=== PATIENT | male | born 1990 | race Caucasian/White ===

== ENCOUNTER 2016-07-22 15:25 | Emergency (ER) | payer SELFPAY ==
[~2016-07-22] VITALS: Ht 182.9 cm; Wt 71.4 kg
[~2016-07-22 15:25] MED LIST: MOTRIN600 MG PO; PERCOCET 7.51 TABLET PO
[2016-07-22 17:31] LABS: HEMATOCRIT 42.7 % (38.0-50.0); MCH 28.7 PG (29.0-34.0); MCHC 33.3 G/DL (30.0-36.0); MCV 86.3 FL (86-99); MEAN PLAT.VOLUME 9.9 uM^3 (9.0-12.4); PLATELET COUNT 273 K/uL (156-360); RBC DIS.WIDTH-CV 12.3 % (11.8-14.6); RBC DIS.WIDTH-SD 38.8 % (39-53); RED BLOOD COUNT 4.95 M/uL (4.00-5.50); WHITE BLOOD COUNT 7.1 K/uL (4.1-10.2)
[2016-07-22 17:45] LABS: CHLORIDE 102 mEq/L (99-109); POTASSIUM 4.3 mEq/L (3.7-5.4); SODIUM 139 mEq/L (136-147)
[2016-07-22 17:47] LABS: GLUCOSE 92 mg/dL (70-99)
[2016-07-22 17:49] LABS: ANION GAP 11 MEQ/L (2-14)
[2016-07-22 17:51] LABS: GFR ESTIMATE (CALCULATED) > 59 mL/min/
[2016-07-22 17:52] LABS: UREA NITROGEN (BUN) 17 mg/dL (9-23)
[2016-07-22 18:02] LABS: ADD MIUA? NO; BILIRUBIN NEGATIVE; BLOOD NEGATIVE; COLOR STRAW ((YELLOW)); GLUCOSE (STRIP) NEGATIVE; KETONES NEGATIVE; LEUKOCYTES NEGATIVE; NITRITE NEGATIVE; PROTEIN (STRIP) NEGATIVE; SPECIFIC GRAVITY 1.006 (1.000-1.030); UCUL ADDED? NO; UROBILINOGEN 0.2 MG/DL (0.2-1.0)
[2016-07-22 18:26] LABS: ERTH.SED.RATE 7 MM/HR (0-15)
[2016-07-22 18:41] LABS: C-REACTIVE PROTEIN < 1.0 MG/L (0-10)
[2016-07-22 19:37] VITALS: BP 140/62
== END 2016-07-22 19:42 | disposition home or self-care (01) ==
LOC: EME 15:25
PROVIDERS: Physician Assistant
DX: M54.12 Radiculopathy, cervical region (principal); M54.9 Dorsalgia, unspecified; G89.29 Other chronic pain; Z87.891 Personal history of nicotine dependence
CPT/HCPCS: 72040; 72070; 80048; 81003; 85027; 85651; 86140; 99281; 99284